=== PATIENT | male | born 1955 | race Caucasian/White ===

== ENCOUNTER 2018-04-19 07:07 | Day surgery (SDC) | payer BC ==
[~2018-04-19 07:07] MED LIST: Midazolam 1 MG/ML 2 ML SDV ONE; fentaNYL 100 MCG/2 ML SDV ONE
[2018-04-19] MEDS ORDERED: fentaNYL 100 MCG/2 ML SDV IV ONE ×3 (07:08→08:25)
[2018-04-19] MEDS ORDERED: Midazolam 1 MG/ML 2 ML SDV IV ONE ×6 (07:08→08:40)
[2018-04-19] MEDS ORDERED: Dextrose 5%-0.45% NaCl 1,000 ML IV SCH (07:30)
--- NOTE | 2018-04-19 09:23 | OR ---
DATE: 04/19/2018 PROCEDURES: Total colonoscopy, narrow-band imaging, and multiple pinch biopsies. INSTRUMENT USED: PCF-H180 [place] Olympus video colonoscope. PREMEDICATIONS: Fentanyl 100 mcg intravenous, Versed 3 mg intravenous. Nasal O2 cannula. The procedure was done under pulse oximetry, BP recording, and cardiac technologist. INDICATION: The patient with rectal bleeding, diarrhea, and anemia. Colonoscopic examination is done for detection of any polypoid lesions and removal. Endoscopic hemostasis therapy if needed. DESCRIPTION OF PROCEDURE: Initial rectal exam showed a large hard mass that could be felt at finger tip. Rigid anoscopy showed small internal hemorrhoids without bleeding from them. The colonoscope was passed with ease. Large circumferential malignant-appearing mass lesion was noted. NBI views were obtained. Photographs were taken. Numerous pinch biopsies were obtained and sent for histopathology. Scattered diverticula were noted in the distal left colon. The scope was passed with ease up to the ileocecal area. Photographs were taken of the normal-appearing cecum, identified by double-bulged ileocecal folds. No bleeding was noted from any of the visualized areas at the commencement of the examination. The bowel preparation was found to be adequate, [place] scale 2. Fecal material had to be aspirated for visualization. No stricture. No vascular ectasia. No large isolated ulcerations seen. No evidence of diffuse inflammatory bowel disease in the form of friability, contact bleeding, or ulcerations. Probing the proximal sides of folds and flexures, using adequate distention and clearing up the stool material, withdrawal of the scope was made. [id number] time over 6 minutes. IMPRESSION: 1. Rectal mass. 2. Diverticulosis. 3. Internal hemorrhoids. The patient tolerated the procedure well. [facility] /[id number]
== END 2018-04-19 10:55 | disposition home or self-care (01) ==
LOC: DL.ENDO 07:07
PROVIDERS: ATTEND Internal Medicine Gastroenterology
DX: C20 Malignant neoplasm of rectum (principal); K62.5 Hemorrhage of anus and rectum; D64.9 Anemia, unspecified; R19.7 Diarrhea, unspecified; K64.8 Other hemorrhoids; K57.30 Diverticulosis of large intestine without perforation or abscess without bleeding; E66.09 Other obesity due to excess calories; I10 Essential (primary) hypertension; H91.90 Unspecified hearing loss, unspecified ear
CPT/HCPCS: 45380; J2250; J3010; J7042

== ENCOUNTER 2020-02-13 06:23 | Day surgery (SDC) | payer BC ==
[~2020-02-13 06:23] MED LIST changes: +Dextrose 5%-0.45% NaCl 1,000 ML IV SCH; +Sodium Chloride 0.9% 10 ML Syringe FLUSH PRN
[2020-02-13] MEDS ORDERED: fentaNYL 100 MCG/2 ML SDV IV ONE ×3 (06:24→07:51)
[2020-02-13] MEDS ORDERED: Midazolam 1 MG/ML 2 ML SDV IV ONE ×5 (06:24→07:53)
--- NOTE | 2020-02-13 08:47 | OR ---
DATE: 02/13/2020 PROCEDURE: Total colonoscopy, narrow band imaging, multiple pinch biopsies. INSTRUMENT USED: PCF-H190DL Olympus video colonoscope. PREMEDICATIONS: Fentanyl 100 mcg intravenous, Versed 3 mg intravenous, and nasal O2 cannula. INDICATION: The patient with previous rectal cancer and radiation therapy. Colonoscopic examination is done for detection of any polypoid lesions and removal, endoscopic hemostasis therapy if needed. DESCRIPTION OF PROCEDURE: Initial rectal exam showed rigid rectum that could be felt with fingertip. Rigid anoscopy showed erythematous distal rectal mucosa. The colonoscope was passed with ease. Macroscopic changes consistent with radiation proctopathy noted along with superficial ulcers, NBI views were obtained, photographs were taken, multiple pinch biopsies were obtained and sent for histopathology. The scope was passed with ease up to the ileocecal area. Photographs were taken of a normal-appearing cecum identified by landmarks of appendiceal orifice and double-bulged ileocecal folds. No bleeding was noted from any of the visualized areas at the commencement of the examination. No stricture. No vascular ectasia. No polyp or tumor mass identified. Probing the proximal sides of folds and flexures using adequate distention and clearing up the stool material, withdrawal of the scope was made, cecum to rectum time over 6 minutes. No bleeding was noted from any of the visualized areas at the completion of each. IMPRESSION: 1. Radiation proctopathy. 2. Rectal ulcers. The patient tolerated the procedure well. [facility] /[id number]
--- NOTE | 2020-02-13 09:07 | LETTER ---
02/13/2020 Dr. Bell [facility] [address] [place] [address], [place] [id number] RE: ARLETTECATHIEGAMA SEGURA : [address] Bell: Mr. Leonardo Hagen had colonoscopic examination done this morning, and he tolerated the procedure well. I herewith send a copy of the endoscopy note and photographs for your review. Thank you, Sincerely, [facility] /[id number]
== END 2020-02-13 10:19 | disposition home or self-care (01) ==
LOC: DL.ENDO 06:23
PROVIDERS: ATTEND Internal Medicine Gastroenterology
DX: K62.6 Ulcer of anus and rectum (principal); Z85.048 Personal history of other malignant neoplasm of rectum, rectosigmoid junction, and anus; K62.7 Radiation proctitis; K52.9 Noninfective gastroenteritis and colitis, unspecified
CPT/HCPCS: 45380; J2250; J3010; J7042

== ENCOUNTER 2021-11-03 06:50 | Day surgery (SDC) | payer BC, OTHER ==
[2021-11-03] MEDS ORDERED: Glycopyrrolate 0.2 MG/ML 2 ML SDV IV ONE (06:51)
[2021-11-03] MEDS ORDERED: Dexamethasone 4 MG/ML SDV IV ONE (06:51)
[2021-11-03] MEDS ORDERED: Midazolam 1 MG/ML 2 ML SDV IV ONE (06:51)
[2021-11-03] MEDS ORDERED: Sodium Chloride 0.9% 10 ML Syringe IV ONE (06:51)
[2021-11-03] MEDS ORDERED: Tobramycin 0.3% Ophth Drops 5 ML Bottle EYELF SCH (07:00)
[2021-11-03] MEDS ORDERED: Ondansetron 4 MG/2 ML SDV IVPUSH PRN (07:00)
[2021-11-03] MEDS ORDERED: Timolol Maleate 0.5% Ophth Soln 5 ML Bottle EYELF ONE (07:00)
[2021-11-03] MEDS ORDERED: Acetaminophen 325 MG Tab PO PRN (07:00)
[2021-11-03] MEDS ORDERED: Cataract Ophth Solution EYELF ONE (07:00)
[2021-11-03] MEDS ORDERED: Tropicamide 1% Ophth Soln 15 ML Bottle EYELF ONE (07:00)
[2021-11-03] MEDS ORDERED: Phenylephrine 10% Ophth Soln 5 ML Bot EYELF ONE (07:00)
[2021-11-03] MEDS ORDERED: Povidone-Iodine 5% Sterile Ophth Soln 30 ML Bottle EYELF ONE ×2 (07:00→08:21)
[2021-11-03] MEDS ORDERED: Moxifloxacin 0.5% Ophth Soln 3 ML Bottle EYELF ONE (07:00)
[2021-11-03] MEDS ORDERED: Acetaminophen/Codeine 300-30 MG Tab PO PRN (07:00)
[2021-11-03] MEDS ORDERED: Proparacaine 0.5% Ophth Soln 15 ML Bottle EYELF ONE (07:00)
[2021-11-03] MEDS ORDERED: Sodium Chloride 0.9% 10 ML Syringe FLUSH PRN (07:00)
[2021-11-03] MEDS ORDERED: Tetracaine HCl/PF 0.5% 4 ML Bottle EYELF ONE (08:21)
[2021-11-03] MEDS ORDERED: Apraclonidine 0.5% Ophth Soln 5 ML Bot EYELF ONE (08:22)
[2021-11-03] MEDS ORDERED: Lidocaine 1% 5 ML VIAL ONE (08:22)
[2021-11-03] MEDS ORDERED: Dexamethasone/Neomycin/Polymyxin B Ophth Oint 3.5 GM Tube EYELF ONE (08:22)
[2021-11-03] MEDS ORDERED: Diclofenac Sodium 0.1% Ophth Soln 5 ML Bottle EYELF ONE (08:22)
[2021-11-03] MEDS ORDERED: Vancomycin 500 MG SDV EYELF ONE (08:23)
[2021-11-03] MEDS ORDERED: Balanced Salt Solution Ophth Irrig 500 ML Bottle IOCULAR ONE (08:23)
[2021-11-03] MEDS ORDERED: Chondroitin Sulfate/Hyaluronate Sodium Ophth Inj 0.75 ML Syringe EYELF ONE (08:23)
[2021-11-03] MEDS ORDERED: Dexamethasone 4 MG/ML SDV IOCULAR ONE (08:27)
== END 2021-11-03 09:36 | disposition home or self-care (01) ==
LOC: DL.SDS 06:50
PROVIDERS: ATTEND Ophthalmology
DX: E11.36 Type 2 diabetes mellitus with diabetic cataract (principal); H25.812 Combined forms of age-related cataract, left eye; M10.9 Gout, unspecified; I49.1 Atrial premature depolarization; K62.7 Radiation proctitis; N40.0 Benign prostatic hyperplasia without lower urinary tract symptoms; E66.9 Obesity, unspecified; Z68.34 Body mass index [BMI] 34.0-34.9, adult; Z79.899 Other long term (current) drug therapy
CPT/HCPCS: 00142; 66984; A9270; J1100; J2250; J3370; J3490; V2632

== ENCOUNTER 2023-09-06 11:09 | Emergency (ER) | payer MEDICARE ==
[2023-09-06] MEDS: Sodium Chloride 0.9% 10 ML Syringe FLUSH PRN (11:52)
[2023-09-06 12:11] LABS: BASOPHILS PERCENT AUTO 0.1 % (0.0-1.0); EOSINOPHILS PERCENT AUTO 0.6 % (1.0-3.0); HEMATOCRIT 34.9 % (40.0-54.0); HEMOGLOBIN 11.4 g/dL (14.0-18.0); LYMPHOCYTES PERCENT AUTO 10.9 % (20.5-50.1); MEAN CORPUSCULAR HEMOGLOBIN 28.4 pg (27.0-34.0); MEAN CORPUSCULAR HGB CONC 32.7 g/dL (33.0-35.0); MONOCYTES PERCENT AUTO 8.9 % (2-8); NEUTROPHILS PERCENT AUTO 79.5 % (42.2-75.2); PLATELET COUNT,PLT 247 10^3/uL (150-450); RED BLOOD CELL COUNT 4.01 10^6/uL (4.6-6.2)
[2023-09-06 12:31] LABS: PROTHROMBIN TIME 10.3 SEC (9.0-12.0); PTT,PARTIAL THROMBOPLSTIN TIME 30.8 SEC (22.0-34.0)
[2023-09-06 12:35] LABS: LACTIC ACID 0.9 mmol/L (0.4-2.0)
[2023-09-06 12:36] LABS: ALANINE AMINOTRANSFERASE,ALT 17 U/L (16-63); ALBUMIN 2.2 g/dL (3.4-5.0); ALKALINE PHOSPHATASE 66 U/L (46-116); ANION GAP 14.8 mEq/L (7-13); ASPARTATE AMNIOTRANSFERASE,AST 16 U/L (15-37); BILIRUBIN TOTAL 1.2 mg/dL (0.2-1.0); BLOOD UREA NITROGEN,BUN 22 mg/dL (7-18); BUN/CREATININE RATIO 15.2 (No establ ref range); C-REACTIVE PROTEIN 24.68 ng/dL (<=0.50); CALCIUM 8.4 mg/dL (8.5-10.1); CARBON DIOXIDE,CO2 25 mmol/L (21-32); CHLORIDE,CL 103 mmol/L (98-107); CREATININE 1.45 mg/dL (0.70-1.30); EST CRCL DRUG DOSING (CG) 46.22 mL/min; GLUCOSE RANDOM 165 mg/dL (70-99); MAGNESIUM 2.2 mg/dL (1.8-2.4); POTASSIUM,K 3.8 mmol/L (3.5-5.1); SODIUM,NA 139 mmol/L (136-145)
[2023-09-06 12:38] LABS: A/G RATIO 0.46; ESTIMATED GFR 53 mL/min (>=60); ETHANOL BLOOD MEDICAL < 3 mg/dL (0)
[2023-09-06 12:46] LABS: B-TYPE NATRIURETIC PEPTIDE,BNP 323 pg/ml (0-100)
[2023-09-06 13:07] LABS: AMPHETAMINES,URINE POSITIVE (NEGATIVE); BARBITURATES,URINE NEGATIVE (NEGATIVE); BENZODIAZEPINE,URINE NEGATIVE (NEGATIVE); MDMA (ECSTASY), URINE NEGATIVE (NEGATIVE); METHADONE,URINE NEGATIVE (NEGATIVE); METHAMPHETAMINES,URINE NEGATIVE (NEGATIVE); OPIATES,URINE NEGATIVE (NEGATIVE); OXYCODONE,URINE NEGATIVE (NEGATIVE); PHENCYCLIDINE,URINE NEGATIVE (NEGATIVE); TCA,URINE NEGATIVE (NEGATIVE)
[2023-09-06 13:08] LABS: APPEARANCE,URINE SLIGHTLY CLOUDY (CLEAR); BILIRUBIN,URINE NEGATIVE (NEGATIVE); COLOR,URINE YELLOW (YELLOW); GLUCOSE,URINE NEGATIVE (NEGATIVE); KETONES,URINE NEGATIVE (NEGATIVE); LEUKOCYTE ESTERASE,URINE TRACE (NEGATIVE); NITRITE,URINE NEGATIVE (NEGATIVE); OCCULT BLOOD,URINE MODERATE (NEGATIVE); PH,URINE 5.5 (5.0-9.0); PROTEIN,URINE >=300 (NEGATIVE); UROBILINOGEN,URINE 0.2 mg/dL (0.2-1.0)
[2023-09-06] MEDS: Iopamidol 612 MG/ML 100 ML Bottle IVPUSH ONE (13:09)
[2023-09-06] MEDS: Sodium Chloride 0.9% 1,000 ML IV ONE (13:19)
[2023-09-06 13:23] LABS: EPITHELIAL CELLS,URINE FEW /HPF (NOT SEEN); RBC,URINE 75-100 /HPF (0-5)
[2023-09-06 13:24] LABS: BACTERIA,URINE FEW /HPF (0-FEW/HPF); MUCUS,URINE FEW /LPF (NOT SEEN)
[2023-09-06] MEDS: Vancomycin 2.5 GM in Sodium Chloride 0.9% 500 ML IV ONE (13:57)
[2023-09-06] MEDS ORDERED: VANCOmycin 1.5 GM/300 ML 300 ML IV SCH (14:00)
[2023-09-06] MEDS: Piperacillin/Tazobactam 4.5 GM in Sodium Chloride 0.9% 100 ML IV ONE (14:18)
[2023-09-06] MEDS: HYDROmorphone 1 MG/ML Syringe IVPUSH ONE (14:20)
[2023-09-06] MEDS: Piperacillin/Tazobactam 4.5 GM Vial ONE (14:43)
[2023-09-07] MEDS ORDERED: VANCOmycin 1.5 GM/300 ML 300 ML IV SCH (14:00)
== END 2023-09-06 14:50 ==
LOC: DL.ED 11:09
DX: R19.5 Other fecal abnormalities (principal); I10 Essential (primary) hypertension; E11.9 Type 2 diabetes mellitus without complications; E78.00 Pure hypercholesterolemia, unspecified; Z79.899 Other long term (current) drug therapy; Z85.038 Personal history of other malignant neoplasm of large intestine
CPT/HCPCS: 36415; 71045; 74177; 80053; 80305; 80307; 81001; 82272; 83605; 83735; 83880; 84145; 84484; 85025; 85610; 85730; 86140; 86850; 86900; 86901; 87040; 87086; 93010; 96361; 96374; 96375; 99285; J1170; J2543; J3370; J3490; J7030; J7040; Q9967